=== PATIENT | male | born 1955 | race Caucasian/White ===

== ENCOUNTER 2020-10-26 08:04 | Outpatient (RCR) | payer OTHER, SELFPAY ==
[2015-04-10 06:02] VITALS: BMI 35.2
[2020-10-22] MEDS: COVID-19 VACC, MRNA(PFIZER)/PF 30 MCG/0.3 ML SYRINGE IM (16:37)
[2020-11-12] MEDS: COVID-19 VACC, MRNA(PFIZER)/PF 30 MCG/0.3 ML SYRINGE IM (16:08)
== END 2021-01-26 23:59 ==
LOC: IMMUN 08:04
PROVIDERS: PCP Family Medicine; Referring Provider Family Medicine; Visit Provider Family Medicine
DX: Z23 Encounter for immunization (principal)
CPT/HCPCS: 0001A; 0002A; 91300

== ENCOUNTER 2020-12-17 17:39 | Emergency (ER) | payer OTHER, SELFPAY ==
[2020-12-17 17:40] VITALS: BP 150/84; PULSE 66; RESP 18; TEMP 36.7; O2SAT 98; BMI 34.2
[2020-12-17 18:49] VITALS: BP 133/90; PULSE 66; RESP 17; O2SAT 98
[2020-12-17 18:55] LABS: Bedside Glucose 93 mg/dL (70-110)
[2020-12-17 19:00] VITALS: BP 124/84; PULSE 66; RESP 18; O2SAT 99
--- NOTE | 2020-12-17 19:29 | EKG12_ITS ---
Test Reason : IRREG HR Blood Pressure : / mmHG Vent. Rate : 074 BPM Atrial Rate : 166 BPM P-R Int : 000 ms QRS Dur : 148 ms QT Int : 444 ms P-R-T Axes : 000 044 022 degrees QTc Int : 492 ms Atrial fibrillation Right bundle branch block Abnormal ECG Confirmed by SCARLETT ROCA, MARISA ([id number]), design editor JERRY JACOBSON ([id number]) on 12/21/2020 12:20:13 PM Referred By: JO Confirmed By:MARISA PANTOJA MD
--- NOTE | 2020-12-17 19:34 | EDS_ITS ---
HPI History of Present Illness Chief Complaint: Dizziness Narrative Narrative: Patient presents with one episode of dizziness. He was driving and felt lightheaded for a few seconds, it self resolved. He is a diabetic and did not check his blood sugar at the time. He actually saw his 's PCP since he took his to to her doctor, apparently he listen to the heart and noticed some irregularity. Patient has known A. fib he is anticoagulated however he was cardioverted for it. He has no chest pain shortness of breath fever or chills he has no vertigo vision changes or disequilibrium. He has no speech difficulty. He did not sleep well last night and has not ate much today. Past medical history: Reviewed Medications: Reviewed Social history: Noncontributory Review of systems: All systems negative except as indicated General: No fever. Lightheadedness as in HPI Eyes: No visual changes ENT: No upper airway congestion, normal voice Neck: No neck pain Cardiovascular: No chest pain. He is denying palpitations, he does not feel his heart beating irregular Respiratory: No shortness of breath or cough Gastrointestinal: No abdominal pain, nausea vomiting or diarrhea Genitourinary: No dysuria Musculoskeletal: Denies myalgias no difficulty with ambulation Skin: No rash Neurological: No memory loss, confusion or any focal weakness Psych: No recent behavioral changes Hematologic: No easy bleeding or easy bruising [facility] Medical History (Updated 12/17/20 @ 21:[address] Galo Samuels MD) A-fib Diabetes mellitus type 2 in obese GERD (gastroesophageal reflux disease) HLD (hyperlipidemia) HTN (hypertension) Home Medications aspirin 81 mg PO DAILY 04/07/15 [History Last Taken Unknown] levothyroxine 88 mcg PO DAILY 04/07/15 [History Last Taken Unknown] metoprolol succinate 100 mg PO DAILY 04/07/15 [History Last Taken 04/10/15 06:54] pantoprazole 40 mg PO DAILY 04/07/15 [History Last Taken Unknown] apixaban [Eliquis] 5 mg PO BID 12/17/20 [History Last Taken Unknown] atorvastatin 40 mg PO DAILY 12/17/20 [History Last Taken Unknown] ferrous sulfate 325 mg PO BID 12/17/20 [History Last Taken Unknown] furosemide 20 mg PO DAILY 12/17/20 [History Last Taken Unknown] metformin 500 mg PO BID 12/17/20 [History Last Taken Unknown] Allergy/AdvReac Type Severity Reaction Status Date / Time No Known Allergies Allergy Verified 12/17/20 17:43 Surgical History (Updated 12/17/20 @ 18:47 by Cortes Veras) Aortic valve replaced H/O hernia repair H/O medial meniscus repair of left knee Hx of total knee replacement Social History Smoking Status: Former smoker EXAM Physical Exam Narrative Exam Narrative: Physical exam General: Well nourished, Well developed, No Acute Distress. BMI of 34 Head: Normocephalic, Atraumatic Eyes: Conjunctiva not pale ENT: Moist mucous membranes Neck: Supple, Nontender, No lymphadenopathy Cardiovascular: Regular rate, irregular rhythm, no murmur Respiratory: No distress, CTA bilaterally Abdomen: Soft, Nontender, Nondistended Back: Nontender, Normal Inspection. Negative for: CVA tenderness Extremities: Nontender, No edema Skin: Normal color, No rash Neurological: Alert, Normal Strength, Normal Sensation Psychological: Normal affect Const Vital Signs: 12/17/20 17:40 12/17/20 18:49 12/17/20 19:00 Temperature 98.0 F Temperature Source Temporal Pulse Rate 66 66 66 Respiratory Rate 18 17 18 Respiratory Effort Normal Non-Labored Respiratory Pattern Normal Blood Pressure 150/84 H 133/90 H 124/84 H Blood Pressure Mean 106 104 97 Pulse Ox 98 98 99 Oxygen Delivery Method Room Air Room Air Room Air 12/17/20 20:00 Temperature Temperature Source Pulse Rate 72 Respiratory Rate 23 H Respiratory Effort Respiratory Pattern Blood Pressure 135/98 H Blood Pressure Mean 110 Pulse Ox 98 Oxygen Delivery Method Room Air MDM MDM MDM Narrative Medical decision making narrative: Patient appears well. He is slightly dehydrated on lab work this was treated in the ED. Otherwise patient is now asymptomatic I will discharge in stable condition. Lab Data Labs: Laboratory Results - last 24 hr 12/17/20 12/17/20 12/17/20 17:57 17:57 18:42 WBC 6.3 RBC 4.85 Hgb 13.9 Hct 42.9 MCV 88.5 MCH 28.7 MCHC 32.4 RDW Std Deviation 45.7 H RDW Coeff of Tony 14.2 Plt Count 139 L MPV 11.9 Immature Gran % (Auto) 0.300 Neut % (Auto) 68.1 Lymph % (Auto) 18.4 L [place] % (Auto) 10.4 H Eos % (Auto) 2.2 Baso % (Auto) 0.6 Absolute Neuts (auto) 4.3 Absolute Lymphs (auto) 1.15 Nucleated RBC % 0 Sodium 138 Potassium 4.7 Chloride 106 Carbon Dioxide 28.0 Anion Gap 4 L BUN 26 H Creatinine 1.21 Estim Creat Clear Calc 67.87 Est GFR (MDRD) Af Amer 77 Est GFR (MDRD) Non-Af 64 BUN/Creatinine Ratio 21.5 H Glucose 90 Calcium 9.0 Total Bilirubin 0.50 AST 41 H ALT 36 Alkaline Phosphatase 68 Troponin I < 0.015 Total Protein 7.4 Albumin 3.7 Globulin 3.7 Albumin/Globulin Ratio 1.0 POC Glucose 93 Radiography Diagnostic Testing: Radiology Impression Chest X-Ray 12/17/20 19:40 IMPRESSION: No acute cardiopulmonary findings or changes. Electronically Signed: Doreen Olsen MD at 20:09 EDT , Service support , Treatment and Re-Evaluation Comments:: Atrial fibrillation with a rate of 74. Right bundle branch pattern. No obvious ischemic pattern. Discharge Plan Triage Chief Complaint: Dizziness ED Provider: Galo Samuels Dx/Rx/DC Orders Clinical Impression: Dehydration Instructions: ED Dehydration (Adult), ED Dizziness, Uncertain Cause Prescriptions: No Action metoprolol succinate 100 MG tablet 100 mg PO DAILY RF: 0 levothyroxine 75 MCG tablet 88 mcg PO DAILY RF: 0 pantoprazole 40 MG tablet 40 mg PO DAILY RF: 0 aspirin 81 MG tablet,chewable 81 mg PO DAILY RF: 0 atorvastatin 40 mg tablet 40 mg PO DAILY RF: 0 metformin 500 mg tablet 500 mg PO BID RF: 0 furosemide 20 mg tablet 20 mg PO DAILY RF: 0 Eliquis 5 mg tablet 5 mg PO BID RF: 0 ferrous sulfate 325 mg (65 mg iron) Tablet 325 mg PO BID RF: 0 Primary Care Provider: Stu Perales Referrals: Stu Perales MD [Primary Care Provider] - 2 Days Disposition Disposition: Home, self care
[2020-12-17 19:38] LABS: Absolute Lymphocyte Count 1.15 X10^3/uL (0.83-4.51); Absolute Neutrophil Count 4.3 X10^3/uL (2.0-7.7); Basophil# 0.04 X10^3/uL; Basophil% 0.6 % (0-1); Eosinophil# 0.14 X10^3/uL; Eosinophils% 2.2 % (0-5); Hematocrit 42.9 % (40-54); Hemoglobin 13.9 g/dL (13.0-16.5); Lymphocyte # 1.15 X10^3/ul (0.83-4.51); Lymphocyte % 18.4 % (19-41); Mean Corp Hgb Conc 32.4 g/dL (32-36); Mean Corpuscular Hgb 28.7 pg (27.0-32.0); Mean Corpuscular Volume 88.5 fL (80-94); Mean Platelet Vol. 11.9 fl (6.2-12.0); Monocyte# 0.65 X10^3/uL; Monocyte% 10.4 % (0-10); NRBC Flagged by Analyzer 0 % (0-5); Neutrophil # 4.25 X10^3/uL (2.7-7.7); Neutrophil % 68.1 % (47-70); Platelet Count 139 K/mm3 (150-450); RBC Distribution Width CV 14.2 % (11.6-14.6); RBC Distribution Width SD 45.7 fl (35.1-43.9); Red Blood Count 4.85 M/mm3 (4.6-6.2); White Blood Count 6.3 K/mm3 (4.4-11.0)
--- NOTE | 2020-12-17 19:40 | RAD_ITS ---
STUDY: X-RAY CHEST REASON FOR EXAM: Male, 65 years old. weakness TECHNIQUE: 1 view apical lordotic COMPARISON: Prior chest radiograph of 12/20/2011 FINDINGS: The lungs are clear and expanded. There is no demonstrated pleural abnormality. Normal cardiac size status post prior midline sternotomy. Normal mediastinum and amalia. Normal visualized pulmonary arteries. Normal visualized aortic arch and descending thoracic aorta. Normal visualized thoracic spine. Normal visualized ribs, clavicles, and shoulders. There is no demonstrated abnormality of the visualized soft tissue structures of the upper abdomen. RAD/Chest 1 View (Portable) IMPRESSION: No acute cardiopulmonary findings or changes. Electronically Signed: Doreen Olsen MD at 20:09 EDT , Service support ,
[2020-12-17 19:54] LABS: AST(SGOT) 41 U/L (15-37); Alanine Aminotransfer ALT/SGPT 36 U/L (16-61); Albumin, Serum 3.7 g/dL (3.2-5.0); Alkaline Phosphatase 68 U/L (45-117); Anion Gap 4 (5-15); BUN 26 mg/dL (7-18); BUN/Creat Ratio 21.5 RATIO (10-20); Chloride 106 mmol/L (98-107); Creatinine, Serum 1.21 mg/dL (0.70-1.30); EST Glomerular Filtration Rate 64 mL/min (>60); Est Glom Filt Rate - Afr Amer 77 mL/min (>60); Estimated Creatinine Clearance 67.87 ml/min; Globulin 3.7 g/dL (2.2-4.2); Glucose 90 mg/dL (74-106); Potassium 4.7 mmol/L (3.5-5.1); Protein, Total 7.4 g/dL (6.4-8.2); Sodium Level 138 mmol/L (136-145)
[2020-12-17 20:00] VITALS: BP 135/98; PULSE 72; RESP 23; O2SAT 98
[2020-12-17 21:47] VITALS: BP 132/80; PULSE 75; RESP 21; O2SAT 98
== END 2020-12-17 21:51 | disposition home or self-care (01) ==
PROVIDERS: Emergency Provider Emergency Medicine; PCP Family Medicine
DX: E86.0 Dehydration (principal); I48.91 Unspecified atrial fibrillation; E11.9 Type 2 diabetes mellitus without complications; Z87.891 Personal history of nicotine dependence; Z79.01 Long term (current) use of anticoagulants; Z79.82 Long term (current) use of aspirin; Z79.84 Long term (current) use of oral hypoglycemic drugs; Z79.899 Other long term (current) drug therapy
CPT/HCPCS: 71045; 80053; 82962; 84484; 85025; 93005; 99283; J7040; A4216

== ENCOUNTER 2022-06-29 20:16 | Emergency (ER) | payer MEDICARE, SELFPAY ==
[2022-06-29 20:17] VITALS: BP 170/81; PULSE 53; RESP 15; TEMP 36.6; O2SAT 99; BMI 35.2
--- NOTE | 2022-06-29 21:08 | EDS_ITS ---
HPI History of Present Illness Chief Complaint: Lower Extremity Injury Informant: patient Onset/Context/Timing Onset: Hours (1.5) Context: - (Unknown, just noticed while he was sitting on the couch resting) Timing: Continuous Quality of Pain: - (Sore) Location: Left lower leg Current Severity: Mild Maximum Severity: Moderate Worsened by: Palpation Relieved by: Leaving alone Associated Symptoms Associated Symptoms: Negative for Parasthesia, Weakness or Loss of Funtion Narrative Narrative: 66-year-old noticed a sore swollen spot on his left leg 1.5 hours ago. He was sitting on a couch when he noticed this. He is anticoagulated on Eliquis because of a history of A. fib. He remembers no injury or bumping it that he can remember today to explain this. He denies any other symptoms. No recent chest pain, shortness of breath, palpitations, syncope, no history of blood clots. No pain elsewhere in the leg. [facility] Medical History A-fib Diabetes mellitus type 2 in obese GERD (gastroesophageal reflux disease) HLD (hyperlipidemia) HTN (hypertension) Home Medications aspirin 81 mg chewable tablet 81 mg PO DAILY 04/07/15 [History Last Taken Unknown] levothyroxine 75 mcg tablet 88 mcg PO DAILY 04/07/15 [History Last Taken Unknown] metoprolol succinate 100 mg tablet,extended release 24 hr 50 mg PO DAILY 04/07/15 [History Last Taken 04/10/15 06:54] pantoprazole 40 mg tablet,delayed release 40 mg PO DAILY 04/07/15 [History Last Taken Unknown] apixaban 5 mg tablet (Eliquis) 5 mg PO BID 12/17/20 [History Last Taken Unknown] atorvastatin 40 mg tablet 40 mg PO DAILY 12/17/20 [History Last Taken Unknown] ferrous sulfate 325 mg (65 mg iron) tablet 325 mg PO BID 12/17/20 [History Last Taken Unknown] furosemide 20 mg tablet 20 mg PO DAILY 12/17/20 [History Last Taken Unknown] metformin 500 mg tablet 500 mg PO BID 12/17/20 [History Last Taken Unknown] Allergy/AdvReac Type Severity Reaction Status Date / Time lisinopril AdvReac PT UNSURE Verified 06/29/22 20:17 OF REACTION Surgical History (Updated 12/17/20 @ 18:47 by Cortes Veras) Aortic valve replaced H/O hernia repair H/O medial meniscus repair of left knee Hx of total knee replacement Social History Smoking Status: Former smoker ROS ROS ED Constitutional Constitutional ED: Denies chills or fever(s) Cardiovascular Cardiovascular: Denies chest pain, leg edema, palpitations or racing heartbeat Respiratory/Chest Respiratory/Chest: Denies cough or dyspnea Musculoskeletal Musculoskeletal: Reports extremity pain; Denies neck pain Integumentary Denies Abrasions, rash or wounds Neurologic Neurologic: Denies paresthesias or weakness EXAM Physical Exam Const Vital Signs: 06/29/22 20:17 Temperature 97.9 F Temperature Source Temporal Pulse Rate 53 L Respiratory Rate 15 Blood Pressure 170/81 H Blood Pressure Mean 110 Pulse Ox 99 Oxygen Delivery Method Room Air Positive well nourished and well developed General Appearance ED: well developed and NAD Neck full ROM and supple Back/Spine normal ROM and normal to inspection Extremity full ROM Extremity Narrative: Mid left medial calf: Tender swollen area about 4 cm in diameter faintly consistent with a contusion/hematoma with regards to inspection given some mild dark discoloration centrally, no erythema or signs of an abscess/cellulitis. No lymphangitis. No bony tenderness. No palpable cords, thigh nontender and normal. Neuro oriented x3, no focal motor deficits and no sensory deficits noted Sensorium / Orientation: alert Psych mental status grossly normal and thought process normal Skin no wounds Rashes: no rashes MDM MDM MDM Narrative Medical decision making narrative: Ultrasound of the left lower extremity was obtained and confirms at this is not a DVT. The area of interest is consistent with a hematoma. If it does not resolve or improve within a week, I recommend close outpatient follow-up. In the meantime supportive care advised along with ice application, patient comfortable with that plan. Radiography Diagnostic Testing: Clinical Impression(s) from Imaging Studies Venous Duplex 06/29/22 21:09 IMPRESSION: 1. No DVT. 2. Palpable area corresponds to hypoechoic nonvascular 4.1 x 3.6 x 1.2 cm mass with no internal blood flow. Consider hematoma in the appropriate clinical setting. Follow to clinical resolution to exclude other pathology. Electronically Signed: Krish Morton MD at 22:13 EST , Discharge Plan Triage Chief Complaint: Lower Extremity Injury ED Provider: Sherif Dyer Dx/Rx/DC Orders Clinical Impression: Hematoma of left lower leg, Anticoagulated Instructions: ED Hematoma Prescriptions: No Action metoprolol succinate 100 MG tablet 50 mg PO DAILY levothyroxine 75 MCG tablet 88 mcg PO DAILY pantoprazole 40 MG tablet 40 mg PO DAILY aspirin 81 MG tablet,chewable 81 mg PO DAILY atorvastatin 40 mg tablet 40 mg PO DAILY Label Comments: TAKE 1 TABLET BY MOUTH EVERY DAY AT BEDTIME for cholesterol metformin 500 mg tablet 500 mg PO BID Label Comments: TAKE 1 TABLET BY MOUTH TWICE DAILY WITH MEALS furosemide 20 mg tablet 20 mg PO DAILY Label Comments: TAKE 1 TABLET EVERY DAY Eliquis 5 mg tablet 5 mg PO BID Label Comments: TAKE 1 TABLET TWICE DAILY ferrous sulfate 325 mg (65 mg iron) Tablet 325 mg PO BID Primary Care Provider: Stu Perales Referrals: Stu Perales MD [Primary Care Provider] - 1 Week if not improving Activity Restrictions/Additional Instructions: Apply ice as needed, not heat Disposition Disposition: Home, Self Care
--- NOTE | 2022-06-29 21:09 | US_ITS ---
EXAM: US DUPLEX LEFT LOWER EXTREMITY VEINS CLINICAL INDICATION: LT ANTERIOR CALF PALP LUMP/ PAIN TECHNIQUE: Real-time duplex ultrasound scan of the left lower extremity veins integrating B-mode two-dimensional vascular structure, Doppler spectral analysis, color flow Doppler imaging and compression. This report was created using [employer] report generation technology. COMPARISON: None. FINDINGS: SEE the Impression. US/Venous Duplex Imag/Limited/Uni IMPRESSION: 1. No DVT. 2. Palpable area corresponds to hypoechoic nonvascular 4.1 x 3.6 x 1.2 cm mass with no internal blood flow. Consider hematoma in the appropriate clinical setting. Follow to clinical resolution to exclude other pathology. Electronically Signed: Krish Morton MD at 22:13 EST ,
[2022-06-29 22:58] VITALS: BP 158/60; PULSE 60; RESP 16
== END 2022-06-29 22:59 | disposition home or self-care (01) ==
PROVIDERS: Emergency Provider Emergency Medicine; PCP Family Medicine; Visit Provider Emergency Medicine
DX: S80.12XA Contusion of left lower leg, initial encounter (principal); I48.91 Unspecified atrial fibrillation; E11.9 Type 2 diabetes mellitus without complications; E78.5 Hyperlipidemia, unspecified; I10 Essential (primary) hypertension; K21.9 Gastro-esophageal reflux disease without esophagitis; Z87.891 Personal history of nicotine dependence; Z79.82 Long term (current) use of aspirin; Z79.899 Other long term (current) drug therapy; Z79.01 Long term (current) use of anticoagulants; Z79.84 Long term (current) use of oral hypoglycemic drugs; X58.XXXA Exposure to other specified factors, initial encounter
CPT/HCPCS: 93971; 99282